=== PATIENT | female | born 2000 | race Caucasian/White ===

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

== ENCOUNTER → 2025-07-27 | Outpatient (REF) | payer OTHER | LOC: M PLALAB 10:51 | PROVIDERS: ATTEND Advanced Practice Midwife | DX: Z53.8 Procedure and treatment not carried out for other reasons (principal) ==

== ENCOUNTER → 2025-07-27 | Outpatient (CLI) | payer OTHER ==
[2025-07-27 14:40] LABS: PLATELET COUNT, AUTOMATED 249 10^3/uL (150-450)
[2025-07-27 14:48] LABS: HIV 1&2 SCREEN NEGATIVE (NEGATIVE)
[2025-07-27 14:56] LABS: HEPATITIS C VIRUS ABY INDEX < 0.02 INDEX (<0.8)
[2025-07-27 15:08] LABS: Trichomonas vaginalis (AMP) NOT DETECTED (NEGATIVE)
[2025-07-27 15:32] LABS: GC DNA AMPLIFICATION NEGATIVE (NEGATIVE)
== END ==
LOC: M PLALAB 11:09
PROVIDERS: ATTEND Advanced Practice Midwife
DX: Z34.01 Encounter for supervision of normal first pregnancy, first trimester (principal)

== ENCOUNTER → 2025-10-04 | Outpatient (CLI) | payer OTHER | LOC: M WHC 14:13 | PROVIDERS: ATTEND Student in an Organized Health Care Education/Training Program | DX: Z34.80 Encounter for supervision of other normal pregnancy, unspecified trimester (principal) ==